=== PATIENT | male | born 1995 | race Hispanic/Latino ===

== ENCOUNTER 2017-06-15 20:08 | Observation (INO) | payer BC ==
[~2017-06-15 20:08] MED LIST: ISOVUE-370 76%-LOCM 1 ML ONE
[2017-06-15] MEDS ORDERED: Ondansetron HCl/PF 4 MG/2 ML Vial ONE (21:20)
[2017-06-15 21:26] LABS: #Eosinphils 0.1 thou/uL (0.0-0.7); #Lymphocytes 0.6 thou/uL (1.20-3.40); #Monocytes 1.4 thou/uL (0.11-0.59); #Neutrophils 14.6 thou/uL (1.40-6.50); %Basophils 0.2 % (0.0-1.0); %Eosinophils 0.3 % (0.0-10.0); %Lymphocytes 3.4 % (28.0-48.0); %Monocytes 8.3 % (0.0-4.0); Hematocrit 57.3 % (42.0-52.0); Mean Platelet Volume 7.3 fL (7.4-10.4); Red Blood Cell (RBC) Count 6.08 mill/uL (4.00-5.20); White Blood Cell (WBC) Count 16.6 thou/uL (4.8-10.8)
[2017-06-15 21:47] LABS: ALT (SGPT) 17 U/L (8-55); AST (SGOT) 24 U/L (10-45); Alkaline Phosphatase 166 U/L (Less than 750); Anion Gap 16 mmol/L (10-20); BUN (Urea Nitrogen) 15 mg/dL (8.4-21.0); Calc. Creatinine Clearance 0 mL/min (70-130); Calcium 10.1 mg/dL (7.8-10.44); Carbon Dioxide 20 mmol/L (22-29); Chloride 104 mmol/L (98-107); Estimated GFR-MDRD 87; Globulin 3.7 g/dL (2.4-3.5); Lipase 14 U/L (8-78); Protein, Total 8.8 g/dL (6.0-8.3)
--- NOTE | 2017-06-15 23:07 | CT ---
CT ABDOMEN AND PELVIS WITH IV CONTRAST: 06/15/17 Enteric contrast not administered per ordering physician request which does preclude assessment of arash horton. CLINICAL HISTORY: Right lower quadrant pain. Diarrhea. FINDINGS: There is diffuse fluid content on the unopacified bowel. There is a fluid filled appendix, not well delineated on the basis of the technique of the exam. An appendicolith is present within this region . The appendix, which is suboptimally identified does not reveal evidence of pathologic dilatation. There are mildly prominent fluid filled loops of small bowel. No free air. There is no evidence of a cute pathology within the imaged solid abdominal viscera. The visualized lung bases are clear. [place] structures are intact. IMPRESSION: Fluid filled appendix without discernible dilatation, although markedly limited without enteric cont rast administration and due to paucity of intra-abdominal fat. There is an appendicolith, which in t he setting of right lower quadrant pain, which is provided for this exam, is concerning for acute ap pendicitis and therefore surgical consultation is warranted. There is diffuse fluid filled bowel with ectatic loops of small bowel. This could relate to an ileus due to an early acute appendicitis. Notification of report of findings placed at 2255 hours, 06/15/17. Code CR POS: [id number]
[2017-06-15] MEDS ORDERED: Piperacillin/Tazobactam 3.375 GM VIAL ONE (23:22)
[2017-06-15] MEDS ORDERED: Fentanyl 250 MCG/5 ML VIAL ONE (23:29)
[2017-06-15] MEDS ORDERED: Bupivacaine HCl 0.5%/Epinephrine 1:200,000/PF 30 ml Vial ONE (23:32)
[2017-06-16] MEDS ORDERED: Glycopyrrolate 0.2 MG/ML 5 ML SYRINGE ONE (00:23)
[2017-06-16] MEDS ORDERED: Succinylcholine Chloride 20 MG/ML 10 ml SYRINGE FS ONE (00:23)
[2017-06-16] MEDS ORDERED: Ondansetron HCl/PF 4 MG/2 ML Vial ONE (00:23)
[2017-06-16] MEDS ORDERED: Propofol 200 MG/20 ML VIAL ONE (00:23)
[2017-06-16] MEDS ORDERED: Lidocaine 1% PF 5 ML VIAL ONE (00:23)
[2017-06-16] MEDS ORDERED: Ondansetron HCl/PF 4 MG/2 ML Vial IVP PRN ×2 (01:31→02:49)
[2017-06-16] MEDS ORDERED: Promethazine HCl 25 MG/ML VIAL IM PRN (01:31)
[2017-06-16] MEDS ORDERED: Promethazine HCl 25 MG/ML VIAL SLOW IVP PRN (01:31)
[2017-06-16] MEDS ORDERED: Meperidine HCl/PF 25 MG/ML VIAL ONE (01:32)
[2017-06-16] MEDS ORDERED: Promethazine HCl 25 MG/ML VIAL ONE (02:04)
[2017-06-16 02:44] VITALS: BMI 12.8
[2017-06-16] MEDS ORDERED: HYDROcodone/Acetaminophen 5/325 mg Tablet PO PRN ×2 (02:46→02:47)
[2017-06-16] MEDS ORDERED: traMADol HCl 50 MG TAB PO PRN ×2 (02:47→02:48)
[2017-06-16] MEDS: D5 1/2 NS w/20 mEq KCL 1,000 ML IV SCH ×2 (03:05→09:12)
[2017-06-16] MEDS: Piperacillin/Tazobactam 3.375 GM in Sodium Chloride 0.9% 100 ML IVPB SCH ×2 (05:43→12:01)
[2017-06-16 06:40] VITALS: TEMP 98.1
[2017-06-16 08:17] VITALS: BP 102/60
[2017-06-16] MEDS ORDERED: FLU VACC QS2017-18 36 mo. & older 0.5 ML SYRINGE IM ONE (09:00)
--- NOTE | 2017-06-17 17:26 | PDOC.OP ---
Operative Note - Operative Note Operative Note: PROCEDURE: Laparoscopic appendectomy SURGEON: Joselin Sarmiento M.D. DATE OF PROCEDURE: 06/15/2017 PREOPERATIVE DIAGNOSIS: Appendicitis POSTOPERATIVE DIAGNOSIS: Appendicitis HISTORY: Patient with right-sided abdominal pain nausea and vomiting. CT showed a fluid-filled appendix with an appendicolith and recommendation was made to proceed with laparoscopic appendectomy. FINDINGS: Inflamed appendix with no evidence of perforation or abscess formation. DESCRIPTION OF PROCEDURE: After informed consent was obtained and appropriate antibiotics continued, the patient was taken to the operating room and placed in the supine position and general endotracheal anesthesia was administered. The bladder was decompressed with a Perry catheter and the abdomen was prepped and draped in the standard sterile fashion. Local anesthesia was infused to the skin and subcutaneous tissues superior to the umbilicus. A transverse skin incision was made and a Veress needle placed into the abdominal cavity and carbon dioxide gas insufflated without difficulty. Opening pressure was less than 5. Carbon dioxide gas was insufflated to an intra-abdominal pressure 15 and the patient tolerated this well. The Veress needle was withdrawn and a [place] port advanced under direct laparoscopic vision into the abdominal cavity. Two additional ports were placed in the suprapubic and left lateral abdomen under direct laparoscopic vision after local anesthesia was infused at these sites. The appendix was identified and appeared inflamed but not perforated. The appendix was grasped by the mesoappendix and elevated. The mesoappendix was then sequentially ligated and divided down to the base of the appendix, which was normal in appearance and was clearly seen to be at the confluence of the tenia. Two Endoloops were placed around the base of the appendix and the appendix was divided between these Endoloops, placed into an EndoCatch bag and drawn out through the suprapubic incision. The suprapubic trocar was then replaced and the operative site was easily irrigated to clear. The suprapubic trocar was removed and the fascia closed under direct laparoscopic vision with a 0 Vicryl suture on a GraNee needle with excellent technical result. The left lateral trocar was then removed and hemostasis verified. Carbon dioxide gas was desufflated through the umbilical trocar which was then removed. The skin incisions were irrigated and additional local anesthesia infused at each site. The skin was closed with 4-0 subcuticular Monocryl sutures and Dermabond dressings were placed. The patient was extubated and taken to the recovery room in good condition. Estimated blood loss was minimal. There were no complications. SPECIMEN: Appendix.
== END 2017-06-16 12:09 | disposition home or self-care (01) ==
LOC: EEVIPCON 20:08 → ERS 20:08 → SDC 06-16 00:10 → SURG B 06-16 01:33
PROVIDERS: ADMIT Surgery; ATTEND Surgery
PROC: 0DTJ4ZZ Resection of Appendix, Percutaneous Endoscopic Approach (ICD-10-PCS; principal; 2017-06-16)
DX: K35.80 Unspecified acute appendicitis (principal)
CPT/HCPCS: 74177; 80053; 83690; 85025; 88304; 96361; 96365; 96366; 96375; 96376; G0378; J0670; J2001; J2175; J2270; J2405; J2543; J2550; J2704; J3010; J7050

== ENCOUNTER 2018-11-29 14:16 | Emergency (ER) | payer BC ==
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
== END 2018-11-29 15:15 | disposition home or self-care (01) ==
LOC: SCSER 14:16
DX: S00.01XA Abrasion of scalp, initial encounter (principal); V89.2XXA Person injured in unspecified motor-vehicle accident, traffic, initial encounter
CPT/HCPCS: 70450

== ENCOUNTER 2021-07-08 23:43 | Emergency (ER) | payer OTHER, BC ==
[2021-07-08] MEDS ORDERED: Boostrix 0.5 ML (Tdap) VIAL ONE (23:58)
== END 2021-07-09 00:15 | disposition home or self-care (01) ==
LOC: ERS 23:43
DX: N48.89 Other specified disorders of penis (principal); W01.0XXA Fall on same level from slipping, tripping and stumbling without subsequent striking against object, initial encounter
CPT/HCPCS: 90471; 90715